=== PATIENT | male | born 1990 | race African-American/Black ===

== ENCOUNTER 2019-01-24 05:02 | Day surgery (SDC) | payer OTHER ==
[~2019-01-24] VITALS: Ht 193 cm; Wt 77.1 kg
[2019-01-24 06:43] VITALS: BP 116/78; Ht 193 cm; Wt 77.1 kg
[2019-01-24] MEDS ORDERED: IBUPROFEN600 MG PO (06:54)
[2019-01-24] MEDS ORDERED: NAPROSYN500 MG PO (06:55)
--- NOTE | 2019-01-24 10:15 | NUR ---
REC'D FROM [facility] ACCOMPANIED BY [facility] OFFICERS. DRESSING CDI TO LEFT DELTOID AREA. FL TRAY BROUGHT TO PT.
--- NOTE | 2019-01-24 10:45 | NUR ---
EATING LUNCH. OFFICERS AT BEDSIDE. NO C/O VOICED.
--- NOTE | 2019-01-24 11:15 | NUR ---
TOLERATED DIET. IV DC'D WITH CATHETER INTACT.
--- NOTE | 2019-01-24 11:25 | NUR ---
WRITTEN AND VERBAL DC INST. GIVEN TO THE PT AND [facility] OFFICERS. VERBALIZED UNDERSTANDING.
--- NOTE | 2019-01-24 11:35 | NUR ---
DC'D BACK TO [facility]AC[facility] VIA FACILITY VEHICLE. TRANSPORTED TO VEHICLE ACCOMPANIED BY OFFICERS. STABLE AT TIME OF DC.
--- NOTE | 2019-01-30 16:42 | OP ---
PATIENT NAME: NOLAN JOHNSON MEDICAL RECORD: [id number] :89 LOCATION:[facility] ADMISSION DATE: SURGEON: DEON DURÁN MD DATE OF OPERATION: 01/24/2019 PREOPERATIVE DIAGNOSIS: Lipoma of the left shoulder. POSTOPERATIVE DIAGNOSIS: Sebaceous cyst of the left shoulder. SURGEON: Deon Durán MD BREAKER TENDER: None. BLOOD LOSS: Minimal. ANESTHESIA: General. COMPLICATIONS: None. The risks, possible complications and alternatives to the procedure were explained to the patient. He elects to proceed. The patient has no left upper extremity numbness, paresthesias or weakness. OPERATIVE COURSE: The patient was conveyed to the operating room electively on 01/24/2019. General anesthesia was induced by the anesthesia staff. The left shoulder was sterilely prepped and draped. A transverse incision was accomplished over the mass, which was easily felt. I dissected down to the mass, which was a sebaceous cyst. Keratin debris was expressed. The cyst was then excised in its entirety sharply. Meticulous hemostasis was achieved with electrocautery. The wound was closed with multiple interrupted intracuticular 3-0 Vicryl sutures. Benzoin and Steri-Strips were applied. The patient was then extubated and conveyed to post-anesthesia care unit where he was in stable condition. There is no need for the patient to follow up with me in the office unless he develops a complication related to this operative procedure. If necessary, I can see him on rounds out at the halfway during my GI clinic day. I think that nonnarcotic analgesia should control his pain. TRANSINT:[id number] Voice Confirmation ID: [id number] DOCUMENT ID: [id number] DEON DURÁN MD at 1642 CC: [id number] DICTATION DATE: 01/24/19 1000 AOC DIRECTOR COMBAT OPERATIONS OFFICER: 01/24/19 1304 [facility] 01/24/19 [place] [id number] [place] [id number]
== END 2019-01-24 11:35 | disposition home or self-care (01) ==
LOC: D.OPS 05:02
PROVIDERS: ATTEND Surgery
DX: L72.0 Epidermal cyst (principal); Z01.812 Encounter for preprocedural laboratory examination